=== PATIENT | female | born 1945 | race Caucasian/White ===

== ENCOUNTER 2019-03-24 11:36 | Emergency (ER) | payer MEDICARE, OTHER ==
--- NOTE | 2019-03-24 11:46 | ED ---
Psych HPI - General Chief Complaint: Psychiatric Symptoms Stated Complaint: AMS Time Seen by Provider: 03/24/19 11:39 Source: EMS, RN notes reviewed, old records reviewed Mode of arrival: EMS Limitations: altered mental status, physical limitation - History of Present Illness Initial Comments: This is a 74-year-old female here for evaluation for strain with unremarkable lying history of dementia patient currently acting appropriately with no complaints. Patient has severe were patient is able to recent evaluations regarding altered mental status and presented to the ER today for further evaluation regarding psychiatric illness history of dementia MD Complaint: altered mental status -: unknown History of same: Yes Quality: constant, intermittent Improves With: none Worsens With: none Context: not taking psychiatric medications Associated Symptoms: confusion Treatments Prior to Arrival: placed on mental health hold If Self Harm: has plan - Related Data Home Medications Medication Instructions Recorded Confirmed Atorvastatin Calcium [Lipitor] 40 mg PO HS 04/19/18 04/28/18 Ciprofloxacin HCl [Cipro] 500 mg PO BID 04/19/18 04/28/18 DULoxetine HCL [Cymbalta] 60 mg PO DAILY 04/19/18 04/28/18 Fluticasone/Vilanterol [Breo 1 inhalation PO Q24HR 04/19/18 04/28/18 Ellipta 100-25 Mcg Inhaler] Furosemide [Lasix] 80 mg PO DAILY 04/19/18 04/28/18 Insulin Aspart [NovoLOG] 14 units SQ ACHS 04/19/18 04/28/18 Insulin Glargine [Lantus] 34 unit SQ HS 04/19/18 04/28/18 Magnesium Oxide [Mag-Ox] 400 mg PO DAILY 04/19/18 04/28/18 Menthol [Biofreeze] 1 applic TOPICAL DAILY 04/19/18 04/28/18 Metolazone [Zaroxolyn] 2.5 mg PO DAILY 04/19/18 04/28/18 Potassium Chloride ER [K-Dur 20] 40 meq PO BID 04/19/18 04/28/18 Ranitidine HCl 150 mg PO DAILY 04/19/18 04/28/18 Tiotropium [place] [Spiriva] 1 cap INHALATION BID 04/19/18 04/28/18 Topiramate 50 mg PO DIRECTED 04/19/18 04/28/18 Topiramate [Topamax] 100 mg PO HS 04/19/18 04/28/18 Allergies Allergy/AdvReac Type Severity Reaction Status Date / Time diclofenac [From Voltaren] AdvReac Rash/Hives Verified 03/24/19 11:45 Review of Systems ROS Statement: Those systems with pertinent positive or pertinent negative responses have been documented in the HPI. ROS Other: All systems not noted in ROS Statement are negative. Past Medical History Past Medical History: Atrial Fibrillation, COPD, Diabetes Mellitus, GERD/Reflux, Hyperlipidemia, Hypertension, Sleep Apnea/CPAP/BIPAP Additional Past Medical History / Comment(s): Gram negative sepsis. Muscle weakness/ difficulty with. Hypokalemia. Alzheimers History of Any Multi-Drug Resistant Organisms: None Reported Past Psychological History: Bipolar, Depression Smoking Status: Never smoker Past Alcohol Use History: None Reported Past Drug Use History: None Reported General Exam Limitations: altered mental status General appearance: alert, in no apparent distress Head exam: Present: atraumatic, normocephalic, normal inspection Eye exam: Present: normal appearance, PERRL, EOMI. Absent: scleral icterus, conjunctival injection, periorbital swelling ENT exam: Present: normal exam, mucous membranes moist Neck exam: Present: normal inspection. Absent: tenderness, meningismus, lymphadenopathy Respiratory exam: Present: normal lung sounds bilaterally. Absent: respiratory distress, wheezes, rales, rhonchi, stridor Cardiovascular Exam: Present: regular rate, normal rhythm, normal heart sounds. Absent: systolic murmur, diastolic murmur, rubs, gallop, clicks GI/Abdominal exam: Present: soft, normal bowel sounds. Absent: distended, tenderness, guarding, rebound, rigid Extremities exam: Present: normal inspection, full ROM, normal capillary refill. Absent: tenderness, pedal edema, joint swelling, calf tenderness Back exam: Present: normal inspection Neurological exam: Present: alert, oriented X3, CN II-XII intact Psychiatric exam: Present: normal affect, normal mood Skin exam: Present: warm, dry, intact, normal color. Absent: rash Course Vital Signs 03/24/19 03/24/19 03/24/19 11:39 13:19 15:53 Temperature 98.2 F 98.0 F Pulse Rate 86 67 85 Respiratory 16 18 16 Rate Blood Pressure 162/83 167/94 O2 Sat by Pulse 99 99 97 Oximetry - Reevaluation(s) Reevaluation #1: 03/24/19 14:34 Patient is medically clear for psychiatric evaluation Reevaluation #2: 03/24/19 19:03 Patient is sedated however psychiatry here in the ER able to be discharged back to care facility spoke with [facility] facility does accept patient back Medical Decision Making - Medical Decision Making 74 female here for evaluation patient acting appropriately earlier seen by psych, patient is directable with her anger. Patient will be transferred back to [facility] - Lab Data Result diagrams: 03/24/19 13:05 03/24/19 13:05 Lab Results 03/24/19 03/24/19 03/24/19 Range/Units 13:05 13:05 13:05 WBC 9.2 (3.8-10.6) k/uL RBC 3.76 L (3.80-5.40) m/uL Hgb 11.4 (11.4-16.0) gm/dL Hct 34.1 (34.0-46.0) % MCV 90.8 (80.0-100.0) fL MCH 30.3 (25.0-35.0) pg MCHC 33.3 (31.0-37.0) g/dL RDW 15.0 (11.5-15.5) % Plt Count 423 (150-450) k/uL Neutrophils % 69 % Lymphocytes % 18 % Monocytes % 7 % Eosinophils % 3 % Basophils % 1 % Neutrophils # 6.3 (1.3-7.7) k/uL Lymphocytes # 1.6 (1.0-4.8) k/uL Monocytes # 0.6 (0-1.0) k/uL Eosinophils # 0.3 (0-0.7) k/uL Basophils # 0.1 (0-0.2) k/uL Hypochromasia Slight Poikilocytosis Slight Sodium 140 (137-145) mmol/L Potassium 3.7 (3.5-5.1) mmol/L Chloride 104 (98-107) mmol/L Carbon Dioxide 28 (22-30) mmol/L Anion Gap 8 mmol/L BUN 17 (7-17) mg/dL Creatinine 0.98 (0.52-1.04) mg/dL Est GFR (CKD-EPI)AfAm 66 (>60 ml/min/1.73 sqM) Est GFR (CKD-EPI)NonAf 57 (>60 ml/min/1.73 sqM) Glucose 169 H (74-99) mg/dL Calcium 8.5 (8.4-10.2) mg/dL Total Bilirubin 0.6 (0.2-1.3) mg/dL AST 15 (14-36) U/L ALT 8 (4-34) U/L Alkaline Phosphatase 84 (38-126) U/L Ammonia <9 (<30) umol/L Creatine Kinase 24 L (30-135) U/L Total Protein 6.6 (6.3-8.2) g/dL Albumin 3.2 L (3.5-5.0) g/dL Urine Color Urine Appearance (Clear) Urine pH (5.0-8.0) Ur Specific [place] (1.001-1.035) Urine Protein (Negative) Urine Glucose (UA) (Negative) Urine Ketones (Negative) Urine Blood (Negative) Urine Nitrite (Negative) Urine Bilirubin (Negative) Urine Urobilinogen (<2.0) mg/dL Ur Leukocyte Esterase (Negative) Urine RBC (0-5) /hpf Urine WBC (0-5) /hpf Ur Squamous Epith Cells (0-4) /hpf Urine Bacteria (None) /hpf Salicylates <1.0 mg/dL Urine Opiates Screen (NotDetected) Ur Oxycodone Screen (NotDetected) Urine Methadone Screen (NotDetected) Ur Propoxyphene Screen (NotDetected) Acetaminophen <10.0 ug/mL Ur Barbiturates Screen (NotDetected) U Tricyclic Antidepress (NotDetected) Ur Phencyclidine Scrn (NotDetected) Ur Amphetamines Screen (NotDetected) U Methamphetamines Scrn (NotDetected) U Benzodiazepines Scrn (NotDetected) Urine Cocaine Screen (NotDetected) U Marijuana (THC) Screen (NotDetected) Serum Alcohol <10 mg/dL 03/24/19 Range/Units 16:46 WBC (3.8-10.6) k/uL RBC (3.80-5.40) m/uL Hgb (11.4-16.0) gm/dL Hct (34.0-46.0) % MCV (80.0-100.0) fL MCH (25.0-35.0) pg MCHC (31.0-37.0) g/dL RDW (11.5-15.5) % Plt Count (150-450) k/uL Neutrophils % % Lymphocytes % % Monocytes % % Eosinophils % % Basophils % % Neutrophils # (1.3-7.7) k/uL Lymphocytes # (1.0-4.8) k/uL Monocytes # (0-1.0) k/uL Eosinophils # (0-0.7) k/uL Basophils # (0-0.2) k/uL Hypochromasia Poikilocytosis Sodium (137-145) mmol/L Potassium (3.5-5.1) mmol/L Chloride (98-107) mmol/L Carbon Dioxide (22-30) mmol/L Anion Gap mmol/L BUN (7-17) mg/dL Creatinine (0.52-1.04) mg/dL Est GFR (CKD-EPI)AfAm (>60 ml/min/1.73 sqM) Est GFR (CKD-EPI)NonAf (>60 ml/min/1.73 sqM) Glucose (74-99) mg/dL Calcium (8.4-10.2) mg/dL Total Bilirubin (0.2-1.3) mg/dL AST (14-36) U/L ALT (4-34) U/L Alkaline Phosphatase (38-126) U/L Ammonia (<30) umol/L Creatine Kinase (30-135) U/L Total Protein (6.3-8.2) g/dL Albumin (3.5-5.0) g/dL Urine Color Light Red Urine Appearance Cloudy H (Clear) Urine pH 5.5 (5.0-8.0) Ur Specific [place] 1.014 (1.001-1.035) Urine Protein 1+ H (Negative) Urine Glucose (UA) Negative (Negative) Urine Ketones 1+ H (Negative) Urine Blood Large H (Negative) Urine Nitrite Negative (Negative) Urine Bilirubin Negative (Negative) Urine Urobilinogen <2.0 (<2.0) mg/dL Ur Leukocyte Esterase Large H (Negative) Urine RBC >182 H (0-5) /hpf Urine WBC >182 H (0-5) /hpf Ur Squamous Epith Cells 1 (0-4) /hpf Urine Bacteria Few H (None) /hpf Salicylates mg/dL Urine Opiates Screen Detected H (NotDetected) Ur Oxycodone Screen Not Detected (NotDetected) Urine Methadone Screen Not Detected (NotDetected) Ur Propoxyphene Screen Not Detected (NotDetected) Acetaminophen ug/mL Ur Barbiturates Screen Not Detected (NotDetected) U Tricyclic Antidepress Detected H (NotDetected) Ur Phencyclidine Scrn Not Detected (NotDetected) Ur Amphetamines Screen Not Detected (NotDetected) U Methamphetamines Scrn Not Detected (NotDetected) U Benzodiazepines Scrn Detected H (NotDetected) Urine Cocaine Screen Not Detected (NotDetected) U Marijuana (THC) Screen Not Detected (NotDetected) Serum Alcohol mg/dL - EKG Data -: EKG Interpreted by Me (EKG shows sinus rhythm rate of 91 WA 204, QRS 96, QTc 447) Disposition Clinical Impression: Psychosis, Altered mental state, Dementia Disposition: HOME SELF-CARE Condition: Good Instructions (If sedation given, give patient instructions): Brief Psychotic Disorder (ED), Altered Mental Status (ED) Is patient prescribed a controlled substance at d/c from ED?: No Referrals: Adonis Lai MD [Primary Care Provider] - 1-2 days
[2019-03-24] MEDS ORDERED: SODIUM CHLORIDE 0.9% 1,000 ML IV ONE (12:41)
[2019-03-24] MEDS ORDERED: LORazepam 2 MG/ML INJ IV STA (13:47)
[2019-03-24 13:51] LABS: Basophils # (A) 0.1 k/uL (0-0.2); Basophils % (A) 1 %; Eosinophils # (A) 0.3 k/uL (0-0.7); Eosinophils % (A) 3 %; HCT 34.1 % (34.0-46.0); HGB 11.4 gm/dL (11.4-16.0); Hypochromasia Slight; Lymphocytes # (A) 1.6 k/uL (1.0-4.8); Lymphocytes % (A) 18 %; MCH 30.3 pg (25.0-35.0); MCHC 33.3 g/dL (31.0-37.0); MCV 90.8 fL (80.0-100.0); Mean Platelet Volume 7.2; Monocytes # (A) 0.6 k/uL (0-1.0); Monocytes % (A) 7 %; Neutrophils # (A) 6.3 k/uL (1.3-7.7); Neutrophils % (A) 69 %; Platelet Count 423 k/uL (150-450); Poikilocytosis Slight; RBC 3.76 m/uL (3.80-5.40); WBC 9.2 k/uL (3.8-10.6)
[2019-03-24 14:01] LABS: ALT 8 U/L (4-34); AST 15 U/L (14-36); Acetaminophen <10.0 ug/mL; African American GFR (CKD) 66 (>60 ml/min/1.73 sqM); Albumin 3.2 g/dL (3.5-5.0); Alcohol <10 mg/dL; Alkaline Phosphatase 84 U/L (38-126); Anion Gap 8 mmol/L; Blood Urea Nitrogen 17 mg/dL (7-17); Calcium 8.5 mg/dL (8.4-10.2); Carbon Dioxide 28 mmol/L (22-30); Chloride 104 mmol/L (98-107); Creatine Kinase 24 U/L (30-135); Glucose 169 mg/dL (74-99); Non-African American GFR(CKD) 57 (>60 ml/min/1.73 sqM); Potassium 3.7 mmol/L (3.5-5.1); Salicylate <1.0 mg/dL; Sodium 140 mmol/L (137-145); Total Bilirubin 0.6 mg/dL (0.2-1.3); Total Protein 6.6 g/dL (6.3-8.2)
[2019-03-24] MEDS ORDERED: ZIPRASIDONE 20 MG VIAL IM STA (14:16)
[2019-03-24 15:55] VITALS: BP 167/94; PULSE 85; RESP 16; TEMP 98
[2019-03-24 17:03] LABS: Appearance,Urine Cloudy (Clear); Bacteria,Urine Few /hpf; Bilirubin,Urine Negative (Negative); Blood,Urine Large (Negative); Color,Urine Light Red; Glucose,Urine (UA) Negative (Negative); Ketones,Urine 1+ (Negative); Leukocyte Esterase,Urine Large (Negative); Nitrite,Urine Negative (Negative); PH, Urine 5.5 (5.0-8.0); Protein,Urine 1+ (Negative); RBC,Urine >182 /hpf (0-5); Specific Gravity,Urine 1.014 (1.001-1.035); Squamous Epithelial Cell,Urine 1 /hpf (0-4); Urobilinogen,Urine <2.0 mg/dL (<2.0); WBC,Urine >182 /hpf (0-5)
[2019-03-24 17:13] LABS: Amphetamine Screen,Urine Not Detected (NotDetected); Barbiturate Screen,Urine Not Detected (NotDetected); Benzodiazepines Screen,Urine Detected (NotDetected); Cocaine Screen,Urine Not Detected (NotDetected); Methadone Screen, Urine Not Detected (NotDetected); Opiate Screen,Urine Detected (NotDetected); Oxycodone Screen, Urine Not Detected (NotDetected); Phencyclidine Screen,Urine Not Detected (NotDetected); Tricyclic Antidepressant,Urine Detected (NotDetected); Urn Cannabinoid Scrn Not Detected (NotDetected)
== END 2019-03-24 19:39 | disposition home or self-care (01) ==
LOC: EC 11:36
DX: F02.80 Dementia in other diseases classified elsewhere, unspecified severity, without behavioral disturbance, psychotic disturbance, mood disturbance, and anxiety (principal); G30.9 Alzheimer's disease, unspecified; J44.9 Chronic obstructive pulmonary disease, unspecified; E11.9 Type 2 diabetes mellitus without complications; K21.9 Gastro-esophageal reflux disease without esophagitis; E78.5 Hyperlipidemia, unspecified; I10 Essential (primary) hypertension; G47.30 Sleep apnea, unspecified; F31.9 Bipolar disorder, unspecified; Z88.6 Allergy status to analgesic agent; Z79.4 Long term (current) use of insulin; Z79.51 Long term (current) use of inhaled steroids; Z79.899 Other long term (current) drug therapy; Z99.89 Dependence on other enabling machines and devices
CPT/HCPCS: 36415; 93005; 80053; 82140; 82550; 85025; 81001; 80306; 83520; 99285; 96374; 96361 ×5; 96372; G0480 ×2; J2060; J3486; 80320; 80329

== ENCOUNTER 2019-05-05 01:55 | Emergency (ER) | payer MEDICARE, OTHER ==
[2019-05-05 02:18] VITALS: TEMP 97.7
[2019-05-05] MEDS ORDERED: ONDANSETRON 4 MG/2 ML VIAL IVP STA (03:01)
[2019-05-05] MEDS ORDERED: MORPHINE SULFATE 2 MG/ML SYRINGE IVP STA (03:01)
--- NOTE | 2019-05-05 03:07 | ED ---
General Adult HPI - General Source: patient, EMS Mode of arrival: EMS Limitations: altered mental status <Idania Adam - Last Filed: 05/05/19 18:02> <Adriane Khoury - Last Filed: 05/06/19 21:27> - General Chief complaint: Altered Mental Status Stated complaint: Dementia Time Seen by Provider: 05/05/19 02:07 - History of Present Illness Initial comments: 74-year-old female patient presents to the emergency department today for evaluation of increased agitation. Patient is currently being treated at [facility] here on for medical debility and chronic lower extremity edema and wounds to her feet. Patient generally takes Valium but is out of his medications so she was unable to receive this. Staff states this evening patient became combative and agitated. States they were unable to control her. They sent her here for further evaluation. Patient states she is having pain to her bilateral legs but denies any other symptoms. Denies any fever or chills. Denies any abdominal pain, nausea, or vomiting. Patient denies any urinary symptoms. States that she was upset which is why she became out of control. Patient denies any recent rash, shortness breath, chest pain, diarrhea, constipa tion, back pain, numbness, tingling, dizziness, weakness, hematuria, dysuria, urinary urgency, urinary frequency, headache, visual changes, or any other complaints. (Idania Adam) - Related Data Home Medications Medication Instructions Recorded Confirmed Atorvastatin Calcium [Lipitor] 40 mg PO HS 04/19/18 04/28/18 Ciprofloxacin HCl [Cipro] 500 mg PO BID 04/19/18 04/28/18 DULoxetine HCL [Cymbalta] 60 mg PO DAILY 04/19/18 04/28/18 Fluticasone/Vilanterol [Breo 1 inhalation PO Q24HR 04/19/18 04/28/18 Ellipta 100-25 Mcg Inhaler] Furosemide [Lasix] 80 mg PO DAILY 04/19/18 04/28/18 Insulin Aspart [NovoLOG] 14 units SQ ACHS 04/19/18 04/28/18 Insulin Glargine [Lantus] 34 unit SQ HS 04/19/18 04/28/18 Magnesium Oxide [Mag-Ox] 400 mg PO DAILY 04/19/18 04/28/18 Menthol [Biofreeze] 1 applic TOPICAL DAILY 04/19/18 04/28/18 Metolazone [Zaroxolyn] 2.5 mg PO DAILY 04/19/18 04/28/18 Potassium Chloride ER [K-Dur ] 40 meq PO BID 04/19/18 04/28/18 Ranitidine HCl 150 mg PO DAILY 04/19/18 04/28/18 Tiotropium [place] [Spiriva] 1 cap INHALATION BID 04/19/18 04/28/18 Topiramate 50 mg PO DIRECTED 04/19/18 04/28/18 Topiramate [Topamax] 100 mg PO HS 04/19/18 04/28/18 Allergies Allergy/AdvReac Type Severity Reaction Status Date / Time diclofenac [From Voltaren] AdvReac Rash/Hives Verified 03/24/19 11:45 Review of Systems ROS Other: All systems not noted in ROS Statement are negative. <Idania Adam - Last Filed: 05/05/19 18:02> ROS Other: All systems not noted in ROS Statement are negative. <Adriane Khoury - Last Filed: 05/06/19 21:27> ROS Statement: Those systems with pertinent positive or pertinent negative responses have been documented in the HPI. Past Medical History Past Medical History: Atrial Fibrillation, COPD, Diabetes Mellitus, GERD/Reflux, Hyperlipidemia, Hypertension, Sleep Apnea/CPAP/BIPAP Additional Past Medical History / Comment(s): Gram negative sepsis. Muscle weakness/ difficulty with. Hypokalemia. Alzheimers History of Any Multi-Drug Resistant Organisms: None Reported Past Psychological History: Bipolar, Depression Smoking Status: Never smoker Past Alcohol Use History: None Reported Past Drug Use History: None Reported <Idania Adam - Last Filed: 05/05/19 18:02> General Exam Limitations: altered mental status General appearance: alert, in no apparent distress, other (Physical well- developed, well-nourished adult female patient in no acute distress. Vital signs upon presentation are temperature 97.7F, pulse 68, respirations 18, blood pressure 120/75, pulse ox 96% on room air.) Eye exam: Present: normal appearance, PERRL, EOMI. Absent: scleral icterus, conjunctival injection, periorbital swelling ENT exam: Present: normal exam, normal oropharynx, mucous membranes moist Respiratory exam: Present: normal lung sounds bilaterally. Absent: respiratory distress, wheezes, rales, rhonchi, stridor Cardiovascular Exam: Present: regular rate, normal rhythm, normal heart sounds. Absent: systolic murmur, diastolic murmur, rubs, gallop, clicks GI/Abdominal exam: Present: soft, normal bowel sounds. Absent: distended, tenderness, guarding, rebound, rigid Extremities exam: Present: full ROM, normal capillary refill, other (Bilateral lower extremity edema, erythema noted. The patient does have dressings wrapped around each leg.). Absent: tenderness, pedal edema, joint swelling, calf tenderness Neurological exam: Present: alert, oriented X3, CN II-XII intact Psychiatric exam: Present: normal affect, normal mood Skin exam: Present: warm, dry, intact, normal color. Absent: rash <Idania Adam - Last Filed: 05/05/19 18:02> Course Vital Signs 05/05/19 05/05/19 05/05/19 02:02 03:18 04:00 Temperature 97.7 F Pulse Rate 65 63 66 Respiratory 18 18 20 Rate Blood Pressure 120/75 132/68 108/68 O2 Sat by Pulse 96 95 94 L Oximetry EKG Findings - EKG Comments: EKG Findings:: EKG obtained at 04 27 shows sinus rhythm with a first-degree AV block. Ventricular rate is 67, [place] interval 2:30, QRS duration 82, QT 396, QTC 418. No evidence of ST elevation or depression <Idania Adam - Last Filed: 05/05/19 18:02> Medical Decision Making - Lab Data Result diagrams: 05/05/19 03:35 05/05/19 03:35 - Radiology Data Radiology results: report reviewed, image reviewed <Idania Adam - Last Filed: 05/05/19 18:02> - Lab Data Result diagrams: 05/05/19 03:35 05/05/19 03:35 <Adriane Khoury - Last Filed: 05/06/19 21:27> - Medical Decision Making 74-year-old female patient presents to the emergency department today for evaluation of increased agitation and being inconsolable at her extended care facility. Physical examination did reveal some chronic lower extremity edema and wounds. Labs reviewed and are relatively unremarkable. No sign of urinary tract infection. We are able to give patient sedation which did calm her period to be discharged back care facility for further evaluation by her primary care physician. (Idania Adam) I evaluated the patient, workup was negative, patient was agitated and did require multiple doses of benzos. However patient has a history of agitation history of dementia with sundowning and was previously on benzos. Patient evaluated by psychiatry last month recommend no psychiatric care and supportive care for dementia and sundowning. At this time I don't feel is any indication for readmission for psychiatric evaluation the patient will be discharged back to her facility. (Adriane Khoury) - Lab Data Lab Results 05/05/19 05/05/19 05/05/19 Range/Units 03:35 03:35 03:35 WBC 6.7 (3.8-10.6) k/uL RBC 4.78 (3.80-5.40) m/uL Hgb 14.0 (11.4-16.0) gm/dL Hct 44.3 (34.0-46.0) % MCV 92.6 (80.0-100.0) fL MCH 29.3 (25.0-35.0) pg MCHC 31.7 (31.0-37.0) g/dL RDW 14.9 (11.5-15.5) % Plt Count 246 (150-450) k/uL Neutrophils % (Manual) 74 % Lymphocytes % (Manual) 22 % Monocytes % (Manual) 2 % Eosinophils % (Manual) 1 % Basophils % (Manual) 1 % Neutrophils # (Manual) 4.96 (1.3-7.7) k/uL Lymphocytes # (Manual) 1.47 (1.0-4.8) k/uL Monocytes # (Manual) 0.13 (0-1.0) k/uL Eosinophils # (Manual) 0.07 (0-0.7) k/uL Basophils # (Manual) 0.07 (0-0.2) k/uL Nucleated RBCs 0 (0-0) /100 WBC Manual Slide Review Performed Anisocytosis (manual) Present PT 10.5 (9.0-12.0) sec INR 1.0 (<1.2) APTT 24.9 (22.0-30.0) sec Sodium 139 (137-145) mmol/L Potassium 5.4 H (3.5-5.1) mmol/L Chloride 107 (98-107) mmol/L Carbon Dioxide 27 (22-30) mmol/L Anion Gap 5 mmol/L BUN 35 H (7-17) mg/dL Creatinine 1.07 H (0.52-1.04) mg/dL Est GFR (CKD-EPI)AfAm 60 (>60 ml/min/1.73 sqM) Est GFR (CKD-EPI)NonAf 52 (>60 ml/min/1.73 sqM) Glucose 136 H (74-99) mg/dL Calcium 8.7 (8.4-10.2) mg/dL Total Bilirubin 0.6 (0.2-1.3) mg/dL AST 28 (14-36) U/L ALT 14 (4-34) U/L Alkaline Phosphatase 67 (38-126) U/L Troponin I (0.000-0.034) ng/mL Total Protein 6.7 (6.3-8.2) g/dL Albumin 3.4 L (3.5-5.0) g/dL Urine Color Urine Appearance (Clear) Urine pH (5.0-8.0) Ur Specific [place] (1.001-1.035) Urine Protein (Negative) Urine Glucose (UA) (Negative) Urine Ketones (Negative) Urine Blood (Negative) Urine Nitrite (Negative) Urine Bilirubin (Negative) Urine Urobilinogen (<2.0) mg/dL Ur Leukocyte Esterase (Negative) Urine RBC (0-5) /hpf Urine WBC (0-5) /hpf Ur Squamous Epith Cells (0-4) /hpf Hyaline Casts (0-2) /lpf Urine Mucus (None) /hpf 05/05/19 05/05/19 Range/Units 03:35 05:15 WBC (3.8-10.6) k/uL RBC (3.80-5.40) m/uL Hgb (11.4-16.0) gm/dL Hct (34.0-46.0) % MCV (80.0-100.0) fL MCH (25.0-35.0) pg MCHC (31.0-37.0) g/dL RDW (11.5-15.5) % Plt Count (150-450) k/uL Neutrophils % (Manual) % Lymphocytes % (Manual) % Monocytes % (Manual) % Eosinophils % (Manual) % Basophils % (Manual) % Neutrophils # (Manual) (1.3-7.7) k/uL Lymphocytes # (Manual) (1.0-4.8) k/uL Monocytes # (Manual) (0-1.0) k/uL Eosinophils # (Manual) (0-0.7) k/uL Basophils # (Manual) (0-0.2) k/uL Nucleated RBCs (0-0) /100 WBC Manual Slide Review Anisocytosis (manual) PT (9.0-12.0) sec INR (<1.2) APTT (22.0-30.0) sec Sodium (137-145) mmol/L Potassium (3.5-5.1) mmol/L Chloride (98-107) mmol/L Carbon Dioxide (22-30) mmol/L Anion Gap mmol/L BUN (7-17) mg/dL Creatinine (0.52-1.04) mg/dL Est GFR (CKD-EPI)AfAm (>60 ml/min/1.73 sqM) Est GFR (CKD-EPI)NonAf (>60 ml/min/1.73 sqM) Glucose (74-99) mg/dL Calcium (8.4-10.2) mg/dL Total Bilirubin (0.2-1.3) mg/dL AST (14-36) U/L ALT (4-34) U/L Alkaline Phosphatase (38-126) U/L Troponin I <0.012 (0.000-0.034) ng/mL Total Protein (6.3-8.2) g/dL Albumin (3.5-5.0) g/dL Urine Color Yellow Urine Appearance Clear (Clear) Urine pH 5.0 (5.0-8.0) Ur Specific [place] 1.011 (1.001-1.035) Urine Protein Negative (Negative) Urine Glucose (UA) Negative (Negative) Urine Ketones Negative (Negative) Urine Blood Negative (Negative) Urine Nitrite Negative (Negative) Urine Bilirubin Negative (Negative) Urine Urobilinogen <2.0 (<2.0) mg/dL Ur Leukocyte Esterase Moderate H (Negative) Urine RBC <1 (0-5) /hpf Urine WBC 5 (0-5) /hpf Ur Squamous Epith Cells <1 (0-4) /hpf Hyaline Casts 4 H (0-2) /lpf Urine Mucus Rare H (None) /hpf - Radiology Data Two-view x-ray of the chest is obtained. Report was reviewed in its entirety. Impression by Dr. Millard shows elevated right diaphragm could relate to some diaphragm paralysis. No heart failure. (Idania Adam) Disposition Is patient prescribed a controlled substance at d/c from ED?: No Time of Disposition: 06:10 <Idania Adam - Last Filed: 05/05/19 18:02> <Adriane Khoury - Last Filed: 05/06/19 21:27> Clinical Impression: SunDown syndrome, Agitation Disposition: HOME SELF-CARE Condition: Good Instructions (If sedation given, give patient instructions): Altered Mental Status (ED) Additional Instructions: Follow-up with the primary care physician as soon as possible. Discussed with the covering physician increased sedation for nighttime. Return to the emergency department for any new, worsening, or concerning symptoms. Referrals: Adonis Lai MD [Primary Care Provider] - 1-2 days
[2019-05-05 03:53] LABS: HCT 44.3 % (34.0-46.0); MCH 29.3 pg (25.0-35.0); MCHC 31.7 g/dL (31.0-37.0); MCV 92.6 fL (80.0-100.0); Platelet Count 246 k/uL (150-450); RBC 4.78 m/uL (3.80-5.40); RDW 14.9 % (11.5-15.5); WBC 6.7 k/uL (3.8-10.6)
[2019-05-05 03:57] LABS: Albumin 3.4 g/dL (3.5-5.0); Calcium 8.7 mg/dL (8.4-10.2); Total Bilirubin 0.6 mg/dL (0.2-1.3); Total Protein 6.7 g/dL (6.3-8.2)
[2019-05-05 04:02] LABS: Potassium 5.4 mmol/L (3.5-5.1)
[2019-05-05 04:07] LABS: Partial Thromboplastin Time 24.9 sec (22.0-30.0); Prothrombin Time 10.5 sec (9.0-12.0)
[2019-05-05] MEDS ORDERED: LORazepam 2 MG/ML INJ IV STA ×3 (04:09→06:09)
[2019-05-05] MEDS ORDERED: SODIUM CHLORIDE 0.9% 500 ML 500 ML IV ONE (04:09)
--- NOTE | 2019-05-05 04:21 | XR ---
EXAMINATION TYPE: XR chest 2V DATE OF EXAM: 05/05/2019 COMPARISON: NONE HISTORY: Altered mental status TECHNIQUE: FINDINGS: There is poor inspiration. There is elevated right diaphragm. There is no heart failure nor confluent pneumonic infiltrate. There is no pleural effusion. Bony thorax is intact. IMPRESSION: Elevated right diaphragm could relate to some diaphragm paralysis. No heart failure.
[2019-05-05 04:35] LABS: Basophils # (M) 0.07 k/uL (0-0.2); Eosinophils # (M) 0.07 k/uL (0-0.7); Lymphocytes # (M) 1.47 k/uL (1.0-4.8); Monocytes # (M) 0.13 k/uL (0-1.0); Neutrophils # (M) 4.96 k/uL (1.3-7.7); Neutrophils % (M) 74 %; Nucleated Red Blood Cells 0 /100 WBC (0-0); Total Cells Counted 100
[2019-05-05 04:36] LABS: Anisocytosis (M) Present
[2019-05-05 04:42] VITALS: BP 108/68; PULSE 66; RESP 20
[2019-05-05] MEDS ORDERED: DIAZEPAM 5 MG/ML 2 ML INJ IVP STA (05:39)
[2019-05-05 05:58] LABS: Appearance,Urine Clear (Clear); Bilirubin,Urine Negative (Negative); Blood,Urine Negative (Negative); Color,Urine Yellow; Glucose,Urine (UA) Negative (Negative); Hyaline Casts,Urine 4 /lpf (0-2); Ketones,Urine Negative (Negative); Leukocyte Esterase,Urine Moderate (Negative); Mucus,Urine Rare /hpf; Nitrite,Urine Negative (Negative); Protein,Urine Negative (Negative); RBC,Urine <1 /hpf (0-5); Specific Gravity,Urine 1.011 (1.001-1.035); Squamous Epithelial Cell,Urine <1 /hpf (0-4); Urobilinogen,Urine <2.0 mg/dL (<2.0); WBC,Urine 5 /hpf (0-5)
== END 2019-05-05 06:48 | disposition home or self-care (01) ==
LOC: EC 01:55
DX: F05 Delirium due to known physiological condition (principal); R45.1 Restlessness and agitation; T42.4X6A Underdosing of benzodiazepines, initial encounter; Z91.138 Patient's unintentional underdosing of medication regimen for other reason; E11.621 Type 2 diabetes mellitus with foot ulcer; L97.529 Non-pressure chronic ulcer of other part of left foot with unspecified severity; L97.519 Non-pressure chronic ulcer of other part of right foot with unspecified severity; R60.0 Localized edema; M79.604 Pain in right leg; M79.605 Pain in left leg; J44.9 Chronic obstructive pulmonary disease, unspecified; K21.9 Gastro-esophageal reflux disease without esophagitis; E78.5 Hyperlipidemia, unspecified; I10 Essential (primary) hypertension; G47.30 Sleep apnea, unspecified; G30.9 Alzheimer's disease, unspecified; F02.81 Dementia in other diseases classified elsewhere, unspecified severity, with behavioral disturbance; F31.9 Bipolar disorder, unspecified; Z88.6 Allergy status to analgesic agent; Z79.4 Long term (current) use of insulin; Z79.51 Long term (current) use of inhaled steroids; Z79.899 Other long term (current) drug therapy; Z99.89 Dependence on other enabling machines and devices
CPT/HCPCS: 99285; 96374; 96375 ×3; 96376; 36415; 93005; 80053; 84484; 85025; 85610; 85730; 81001; 71046; J2060; J3360; J2405; J2270